=== PATIENT | male | born 1950 | race Caucasian/White ===

== ENCOUNTER 2017-06-14 18:10 | Inpatient (IN) | payer MEDICARE ==
[~2017-06-14] VITALS: Ht 188 cm; Wt 135.6 kg
[2017-06-14 18:15] VITALS: BP 144/85
[2017-06-14 18:49] LABS: ABSOLUTE EOSINOPHILS 0.1 thou/uL (0.0-0.7); ABSOLUTE MONOCYTES 0.5 thou/uL (0.0-1.2); ABSOLUTE NEUTROPHILS 7.8 thou/uL (1.6-8.1); BASOPHILS 0.4 %; EOSINOPHILS 0.9 %; MCH 31.4 pg (26.0-34.0); MCHC 33.3 g/dL (28.0-37.0); MCV 94.4 fL (80.0-100.0); MONOCYTES 4.8 %; MPV 7.7 fl. (7.2-11.1); NUCLEATED RBCS 0 /100WBC; PLATELET COUNT* 263 thou/uL (150-400); POLYS 82.9 %; RBC 4.45 mil/uL (4.50-6.00); RDW-CV 13.9 % (10.5-14.5); WBC 9.4 thou/uL (4.0-11.0)
[2017-06-14 18:54] LABS: ANION GAP 10 mmol/L (7-16); APTT 29.2 Seconds (25.0-31.3); BUN 14 mg/dL (7-18); CALCIUM 8.9 mg/dL (8.5-10.1); CHLORIDE 103 mmol/L (98-107); CO2 30 mmol/L (21-32); CREATININE 0.9 mg/dL (0.6-1.3); GLUCOSE 83 mg/dL (70-99); INR 1.1; POTASSIUM 3.6 mmol/L (3.5-5.1); PROTIME 10.3 Seconds (9.20-11.50); SODIUM 143 mmol/L (136-145)
[2017-06-14] MEDS ORDERED: COZAAR 50 MG TA50 M2 PO (18:58)
[2017-06-14] MEDS ORDERED: ZANTAC 150MG T150 MG PO (18:59)
[2017-06-14] MEDS ORDERED: FLOMAX0.4 MG PO (19:00)
[2017-06-14] MEDS ORDERED: LINZESS290 MCG PO (19:00)
[2017-06-14] MEDS ORDERED: HYDROCHLOROTHIA25 M2 PO (19:01)
[2017-06-14] MEDS ORDERED: AMITRIPTYLINE H10 M3 PO (19:02)
[2017-06-14] MEDS ORDERED: LEVOCETIRIZINE D5 MG PO (19:03)
[2017-06-14 19:05] LABS: ALBUMIN 3.8 g/dL (3.4-5.0); ALKALINE PHOSPHATASE 97 U/L (46-116); NT-PRO BRAIN NAT PEPTIDE 182 pg/mL (<300); SGOT 17 U/L (15-37); SGPT 19 U/L (30-65); TOTAL BILIRUBIN 0.6 mg/dL (<0.1-1.0); TOTAL PROTEIN 6.8 g/dL (6.4-8.2); TROPONIN-I LEVEL <0.06 ng/mL (<0.06)
[2017-06-14] MEDS ORDERED: NUVIGIL250 MG PO (19:05)
[2017-06-14 20:02] LABS: URINE BILIRUBIN NEGATIVE (Negative); URINE BLOOD NEGATIVE (Negative); URINE CLARITY CLEAR; URINE COLOR YELLOW; URINE GLUCOSE-RANDOM NEGATIVE (Negative); URINE KETONES TRACE (Negative); URINE LEUKOCYTES-REFLEX NEGATIVE (Negative); URINE NITRITE-REFLEX NEGATIVE (Negative); URINE PROTEIN NEGATIVE (Negative); URINE SPECIFIC GRAVITY 1.025 (1.005-1.030); URINE UROBILINOGEN 0.2 E.U./dl (0.2-1.0)
[2017-06-14 22:29] VITALS: BP 119/46
[2017-06-14 22:50] VITALS: BP 145/80
[2017-06-15 03:32] VITALS: BP 148/89
[2017-06-15 05:23] LABS: HEMATOCRIT 38.7 % (42.0-52.0); HEMOGLOBIN 13.2 gm/dL (14.0-18.0); MCH 31.7 pg (26.0-34.0); MCHC 34.1 g/dL (28.0-37.0); MCV 93.2 fL (80.0-100.0); MPV 8.1 fl. (7.2-11.1); RBC 4.15 mil/uL (4.50-6.00); RDW-CV 14.2 % (10.5-14.5); WBC 7.9 thou/uL (4.0-11.0)
[2017-06-15 05:46] LABS: ALBUMIN 3.3 g/dL (3.4-5.0); CALCIUM 8.6 mg/dL (8.5-10.1); CREATININE 0.9 mg/dL (0.6-1.3); POTASSIUM 3.8 mmol/L (3.5-5.1); TOTAL BILIRUBIN 0.5 mg/dL (<0.1-1.0); TOTAL PROTEIN 5.7 g/dL (6.4-8.2)
[2017-06-15 07:30] VITALS: BP 137/73
--- NOTE | 2017-06-15 08:11 | NUR ---
PT WAS ADMITTED TO ROOM 212 DURING THIS SHIFT; VSS, A+OX4, C/O MILD PAIN IN JOINTS, LYDIA. BLE. PT/OT EVAL ORDERED FOR TODAY. HE IS ABLE TO COMMUNICATE HIS NEEDS EFFECTIVELY TO STAFF. CURRENT PAIN MEDICATION REGIMEN HAS BEEN ADEQUATE FOR CONTROLLING HIS PAIN UP TO THIS TIME.
[2017-06-15] MEDS ORDERED: TOPAMAX 25 MG T25 M1 PO (10:45)
[2017-06-15] MEDS ORDERED: VITAMIN D1000 UNI1 PO (10:46)
[2017-06-15] MEDS ORDERED: KLOR-CON 1010 MEQ PO (10:46)
[2017-06-15] MEDS ORDERED: PERCOCET 10-321 EACH PO (10:48)
--- NOTE | 2017-06-15 12:00 | EKG ---
[place] [address] ELECTROCARDIOGRAM REPORT Name: DAMIÁN HOLLOWAY Room: [address] ADM IN .R.#: [id number] Admission: 06/14/17 Attend Phys: John Jolly MD Discharge: Date of : 50 Report #: [id number] THIS REPORT FOR: //name// [facility] ED Test Date: 2017-06-14 Test Time: 18:22:56 Pat Name: DAMIÁN HOLLOWAY Department: Room: [facility] Gender: [employer] Developer: Mariela ETIENNE : 1950 Requested By: Cuco Isaacs Order Number: [id number] MD: Adrian Hudson Measurements Intervals Parsons Rate: 58 P: 47 VT: 181 QRS: -3 QRSD: 113 T: 36 QT: 451 QTc: 444 Interpretive Statements Sinus rhythm Borderline intraventricular conduction delay No previous ECG available for comparison Electronically Signed On 06-15-2017 12:00:06 HELICOPTER PILOT by Adrian Hudson [email or web address] <ELECTRONICALLY SIGNED> By: Adrian Hudson MD, [facility] 06/15/171199 21 21 Adrian Hudson MD, [facility] /EPI
--- NOTE | 2017-06-15 13:54 | NUR ---
MET WITH PT TO DISCUSS HOME SITUATION/DC PLANNING. ALSO RECEIVED ORDER FROM TO DISCUSS HH WITH PT. PT LIVES WITH WHO IS ON PALLIATIVE CARE WITH HE THINKS [facility], UNSURE BUT MAY BE [facility]. HE STATES A NURSE COMES WEEKLY TO SEE HER. IS ABLE TO AMBULATE SHORT DISTANCE WITH WALKER AND DO HER OWN PERSONAL ADLS. 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 THEY JUST MOVED IN WITH THEIR SON/DIL AND CHILDREN IN ORDER TO HAVE MORE HELP CARING FOR HER. PT ADMITTED WITH FALL AND STATES HE LAYED ON THE FLOOR FOR ~15HRS. HE SAID HIS WAS IN THE RECLINER SLEEPING AND HIS DIL COULDN'T GET HIM UP. DID FINALLY CALL 911. PT IS NORMALLY INDEPENDENT AND ACTIVE, USES CPAP BUT NO OTHER EQUIPMENT. HE FOLLOWS WITH DR PH[place]LLIS N[place]ER [place] HASN'T HAD HH OR BEEN TO SNF. DISCUSSED HH AND OPTIONS, CHOSE [facility]. ALSO DISCUSSED CARES PROGRAM. HE WANTS TO TALK WITH HIS ABOUT IT. OFFERED VISIT BY CARE REGRINDER AND HE SEEMED INTERESTED IN THAT. WILL F/U WITH PT ON SATURDAY TO DISCUSS FURTHER. HE PLANS TO RETURN HOME AT [place]
--- NOTE | 2017-06-15 18:17 | NUR ---
ASSUMED CARE OF PATIENT AFTER TRANSFER FROM TELEMETRY UNIT AT 1755. ALERT AND ORIENTED. VSS ON ROOM AIR. ORIENTED PATIENT TO ROOM AND INSTRUCTED TO USE CALL LIGHT FOR NEEDS. PATIENT HAS NO COMPLAINTS OF PAIN OR NAUSEA AT THIS TIME. FLUIDS INFUSING ORDERED. CALL LIGHT IS WITHIN REACH. NURSING WILL CONTINUE TO MONITOR.
[2017-06-15 20:00] VITALS: BP 129/79
[2017-06-16 03:54] LABS: HEMOGLOBIN 12.5 gm/dL (14.0-18.0); MCH 31.9 pg (26.0-34.0); MCHC 33.8 g/dL (28.0-37.0); MCV 94.4 fL (80.0-100.0); RBC 3.92 mil/uL (4.50-6.00); RDW-CV 14.3 % (10.5-14.5)
[2017-06-16 04:24] LABS: ALBUMIN 3.1 g/dL (3.4-5.0); CALCIUM 8.3 mg/dL (8.5-10.1); CREATININE 0.8 mg/dL (0.6-1.3); MAGNESIUM 1.9 mg/dL (1.8-2.4); POTASSIUM 3.7 mmol/L (3.5-5.1); TOTAL BILIRUBIN 0.3 mg/dL (<0.1-1.0); TOTAL PROTEIN 5.5 g/dL (6.4-8.2)
--- NOTE | 2017-06-16 07:08 | NUR ---
PATIENT HAS RESTED WELL THROUGHOUT THE NIGHT. PAIN HAS BEEN CONTROLLED WITH ORAL PAIN MEDICATIONS. MEDICATIONS CHARTED. VSS ON RA. PATIENT USING BEDSIDE URINAL. IV IN RIGHT AC AND SALINE LOCKED PER DR. RAMIREZ THIS AM. ENCOURAGING PATIENT TO DRINK ORAL FLUIDS NOW. PATIENT INSTRUCTED TO USE CALL LIGHT WHEN NEEDING ASSISTANCE. HOURLY ROUNDS MADE. WILL CONTINUE WITH PLAN OF CARE AND NURSING TO MONITOR.
[2017-06-16 07:30] VITALS: BP 138/78
[2017-06-16 16:00] VITALS: BP 153/88
--- NOTE | 2017-06-16 17:23 | NUR ---
ASSUMED CARE OF PATIENT AFTER MORNING REPORT. ALERT AND ORIENTED X4. ASSESSMENT COMPLETED AND CHARTED. VSS ON ROOM AIR. PATIENT HAS HAD NO COMPLAINTS OF NAUSEA THIS SHIFT. PAIN HAS BEEN MANAGED WITH PAIN MEDICATION. PATIENT IS UP AND MOVING AROUND TODAY WITH LESS PAIN. PATIENT RESTING COMFORTABLY IN THE RECLINER AT THIS TIME. HOURLY ROUNDS HAVE BEEN MAINTAINED. CALL LIGHT IS WITHIN REACH. NUTRSING WILL CONTINUE TO MONITOR.
[2017-06-16 20:00] VITALS: BP 135/59
--- NOTE | 2017-06-17 08:24 | NUR ---
PATIENT SLEPT WELL THROUGHOUT THE NIGHT WITHOUT ANY ISSUES. PAIN WELL CONTROLLED WITH ORAL PAIN MEDICATIONS. VSS ON RA. IV IN RIGHT AC-SL. PATIENT INSTRUCTED TO USE CALL LIGHT WHEN NEEDING ASSISTANCE. PATIENT HAS BEEN EDUCATED ON FALL RISKS, BUT DOES GET UP BY HIMSELF AT TIMES WITHOUT USING CALL LIGHT. HOURLY ROUNDS MADE. WILL CONTINUE WITH PLAN OF CARE AND NURSING TO MONITOR.
[2017-06-17 08:30] VITALS: BP 143/63
[2017-06-17 16:00] VITALS: BP 144/60
--- NOTE | 2017-06-17 16:20 | NUR ---
PATIENT REMAINS ALERT AND ORIENTED. PARTICIPATED WITH PT/OT TODAY. KNEE BRACE PROVIDED BY [facility] TODAY FOR LEFT KNEE DJD. PATIENT WISHES TO TRANSFER AD ANNA IN ROOM. PATIENT EDUCATED ON FALL PREVENTION AND NEED TO CALL STAFF FOR ASSISTANCE. VIT B12 INJECTION TODAY. IV SALINE LOCKED. UP TO RECLINER. CALL LIGHT WITHIN REACH. WILL CONTINUE TO MONITOR.
[2017-06-17 20:20] VITALS: BP 125/74
--- NOTE | 2017-06-18 06:57 | NUR ---
PATIENT HAS SLEPT WELL THROUGHOUT THE NIGHT WITHOUT ANY ISSUES. PAIN WELL CONTROLLED WITH ORAL PAIN MEDICATIONS. VSS ON RA. PATIENT VOIDING ADEQUATELY. PATIENT IS UP AD-ANNA WITH WALKER AND STEADY. PATIENT INSTRUCTED TO USE CALL LIGHT WHEN NEEDING ASSISTANCE. HOURLY ROUNDS MADE. WILL CONTINUE WITH PLAN OF CARE AND NURSING TO MONITOR.
--- NOTE | 2017-06-18 07:23 | CON ---
[address] [address] CONSULTATION Name: JEWELDAMIÁN Room: [address] IN M.R.#: [id number] Admission: 06/14/17 Attend Phys: John Jolly MD Discharge: Date of : 50 Report #: [id number] THIS REPORT FOR: //name// CC: [facility] physician/PCP John Jolly DATE OF SERVICE: 06/15/2017 HISTORY OF PRESENT ILLNESS: This is a 66-year-old male patient who indicates he fell down. He is not a very good historian and when I tried to get history from him, he indicates that I should contact his family doctor because he has been diagnosed with multiple arthritis. When I tried to examine him, he indicates he has a pain in his shoulder. Even when I tried to do the position sense in the lower extremities, he indicates he has pain. Therefore, both history taking and examination is very difficult. The records were noticed and basically he fell down because of some mechanical difficulty. He does not know whether he hit his head or not. He finally asked for help and he was brought in here. His CPK is not high and he is being treated. He will not tell me how much weak he is. Record indicates he has some myalgia. He does have multiple arthritis, according to him. He indicates he is able to walk without any walker at home. REVIEW OF SYSTEMS: I tried to do 14-point review of system. He is having a CPAP, which he indicates he uses for sleep apnea. He will not tell me anything about chest pain. He says that he has been seeing double, especially on looking towards the left. He said it is going on for a few months. He had a hernia at one time. He says he has some history of hypertension and back pain. I also need to talk to him some other time because he looked very irritable at the moment, but this is a relevant 14-point review of systems I can get. PAST MEDICAL HISTORY: Negative for any diagnosis of myasthenia gravis, polymyositis, etc. FAMILY HISTORY: Negative for early age strokes. SOCIAL HISTORY: He says he does not smoke. PHYSICAL EXAMINATION: NEUROLOGIC: The patient's examination is limited because he does not cooperate. He is keeping his eyes closed. When I asked him to wake up, he could not tell me what month it is. He did not know the date. He knows what hospital he is in. His speech looks intact. Cranial nerve examination 2-12 does indicate that when he moves his eyes towards left side, he may have some deficit of his abducens muscle. He moves all 4 extremities. Reflexes are symmetrical, but diminished, but that may be because the patient does not relax and says it hurts. I tried to do the position sense, he says that hurts, but touch looks intact. Tone looks symmetrical. [place] [address] CONSULTATION Name: DAMIÁN HOLLOWAY Room: [address] IN .R.#: [id number] Admission: 06/14/17 Attend Phys: John Jolly MD Discharge: Date of : 50 Report #: [id number] CARDIAC: Looks unremarkable. He is wearing a CPAP. GENERAL: He is a very well-built individual. HEENT: He does not have any dysmorphic features of eyes, ears and face. VITAL SIGNS: Blood pressure is 137/73, respirations 16, pulse 76, temperature is 98.4. LABORATORY DATA: White count is 7.9 and CPK is normal. He did have a CT scan of the head, which was reviewed, which showed no acute process. IMPRESSION: Not possible in this patient because the patient is not able to provide any history. He wants me to get his records from his primary care. We will try to do that. Since he will not provide any accurate history, we will try to get the history from the record if we can get it. He will need workup including EMG workup for myasthenia gravis because of muscle weakness, some of it has to be done as an inpatient and some of them has to be done as an outpatient. RECOMMENDATIONS: 1. Get the record from his doctor as he will not provide the history. 2. Get the myasthenia marker if you can do that. 3. See how he does with the physical and occupational therapy and try to do a better examination when he can tolerate that and I will try to check that tomorrow again. Thank you very much for this referral. <ELECTRONICALLY SIGNED> By: Hakeem Saba MD 06/18/17 0723 [id number] Saba MD /nt
[2017-06-18 07:50] VITALS: BP 136/75
[2017-06-18] MEDS ORDERED: PERCOCET 10-321 EACH PO (08:58)
[2017-06-18] MEDS ORDERED: LIDOPATCH1 EACH TOP (08:58)
[2017-06-18 09:56] VITALS: BP 136/75
--- NOTE | 2017-06-18 15:09 | NUR ---
PT.BEING DISCHARGED TODAY WITH HOME HEALTH. HE IS AGREEABLE. HIS IS ON [facility] PALLIATIVE CARE. HE WOULD LIKE TO USE [facility]. SPOKE WITH ELVIS/[facility] HH [phone]. SHE ACCEPTED PT.ON SERVICE. FAXED H&P/DISCHARGE SUMMARY,FACE SHEET/AND MED LIST TO HER AT [phone]. PT.ALSO WOULD LIKE CARES THROUGH [facility]. CM WILL SET UP. HE WILL NEED A FWW. CONTACTED [employer] WHO OKD THIS. FAXED ORDER TO HER. GAVE ORDER TO [facility]. HE WILL HAVE [facility]PENSE IT PRIOR TO PT.DISCHARGING.
--- NOTE | 2017-06-18 16:20 | NUR ---
PATIENT DISCHARGED TO HOME AT THIS TIME. IV REMOVED YESTERDAY. SCRIPT FOR LIDODERM AND OXYCODONE GIVEN TO PATIENT. PATIENT VERBALIZES UNDERSTANDING OF NEED TO FOLLOW UP WITH NEUROLOGIST AND NEUROSURGERY. WALKER PROVIDED. HH ORDERED. PATIENT DISCHARGED WITH .
== END 2017-06-18 16:20 | disposition home health service (06) | DRG 552 ==
LOC: M.ERS 18:10 → M.ORTHSURG 20:57 → M.TBA-ER 20:57 → M.2W 21:59 → M.ORTHSURG 06-15 17:55
PROVIDERS: Emergency Medicine; Family Medicine; Internal Medicine; ADMIT Internal Medicine
DX: M48.061 Spinal stenosis, lumbar region without neurogenic claudication (principal); M48.02 Spinal stenosis, cervical region; E86.0 Dehydration; G89.29 Other chronic pain; M54.9 Dorsalgia, unspecified; I10 Essential (primary) hypertension; M79.1 Myalgia; M47.812 Spondylosis without myelopathy or radiculopathy, cervical region; E53.8 Deficiency of other specified B group vitamins; M47.816 Spondylosis without myelopathy or radiculopathy, lumbar region; W18.39XA Other fall on same level, initial encounter; Z90.49 Acquired absence of other specified parts of digestive tract; Z88.2 Allergy status to sulfonamides; Y93.89 Activity, other specified; Y92.098 Other place in other non-institutional residence as the place of occurrence of the external cause; Y99.8 Other external cause status